=== PATIENT | female | born 1990 | race African-American/Black ===

== ENCOUNTER 2016-08-30 12:29 | Emergency (ER) ==
[2016-08-30 12:35] VITALS: BP 132/74
[2016-08-30] MEDS ORDERED: DUONEB (A & A) INH ONE (13:12)
[2016-08-30] MEDS ORDERED: DECADRON IM ONE (13:12)
--- NOTE | 2016-08-30 13:13 | PROVIDER DOCUMENTATION ---
HPI-General Adult - General Chief Complaint: Flu Symptoms Stated Complaint: FLU LIKE SX Time Seen by Provider: 08/30/16 13:09 Source: patient Allergies/Adverse Reactions: Patient Allergies Allergy/AdvReac Type Severity Reaction Status Date / Time Penicillins Allergy RASH Verified 08/30/16 12:35 - History of Present Illness -Gen Adult Nature of Presenting Problems: 26 y/o AAF c/o cough c hx of asthma, sob, fatigue, and muscle aches x 3 days, with subjective fevers and post-tussive emesis x 1 last night. She used her nebulizer once last night with minimal relief, non toda; no other pre-arrival treatments. denies chest pain. Denies sick contacts. Review of Systems - Adult - REVIEW OF SYSTEMS - ADULT Constitutional: reports: see HPI, chills, fever, fatique. denies: night sweats , weight gain Eyes: reports: no symptoms reported. denies: blurred vision, double vision, eye pain Ears, Nose, Mouth & Throat: reports: no symptoms reported. denies: ear pain, nose pain, throat pain Cardiovascular: reports: no symptoms reported. denies: chest pain, palpitations Respiratory: reports: see HPI, cough, shortness of breath, wheezing Gastrointestinal: reports: see HPI, nausea, vomiting. denies: abdominal pain, diarrhea Genitourinary: reports: no symptoms reported. denies: dysuria, discharge, frequency Musculoskeletal: reports: see HPI, muscle aches. denies: bone pain, back pain, joint pain Integumentary: reports: no symptoms reported. denies: rash Neurological: reports: no symptoms reported. denies: headache/migraines Psychiatric: reports: no symptoms reported Endocrine: reports: no symptoms reported Hematologic/Lymphatic: reports: no symptoms reported Allergic/Immunologic: reports: no symptoms reported All Other Systems: Reviewed and Negative Past History - Adult - PAST MEDICAL HISTORY-ADULT Review of Records: reports: Old Records Reviewed, Nursing Assessment Review, Medications Reviewed, Social history reviewed & non-contributory. Major Childhood Illnesses: reports: denies history Cardiovascular: reports: denies history Respiratory: reports: asthma Gastrointestinal: reports: denies history Obstetrical/Gynecological: reports: denies history Genitourinary: reports: denies history Musculoskeletal: reports: denies history Neurological: reports: denies history Endocrine/Immune: reports: denies history Other Conditions: reports: denies history - PRIOR SURGERIES/PROCEDURES Surgical/Procedure History: reports: reviewed, not pertinent - FAMILY HISTORY Family History: reviewed, not pertinent - SOCIAL HISTORY Smoking: denies Substance Use: none/never Alcohol Use Frequency: never Physical Exam-General - PHYSICAL EXAM-ADULT Initial Vital Signs Reviewed: Yes - CONSTITUTIONAL General Appearance: appears well, alert, no apparent distress - EYES Eyes: PERRL/EOMI, pink conjunctivae - HEAD, EARS, NOSE, MOUTH & THROAT HENMT: normocephalic/atraumatic, moist mucous membranes, normal ENT inspection, TMs normal, pharynx normal. negative: pharyngeal erythema, tonsillar exudate, TM abnormal - NECK Neck: non-tender, full range of motion, supple, normal inspection. negative: lymphadenopathy - RESPIRATORY Respiratory: chest non-tender, no accessory muscle use, wheezing (generalized). negative: no pleuratic chest pain, no respiratory distress, respiratory distress, decreased breath sounds, accessory muscle use, crackles, rales, rhonchi - CARDIOVASCULAR Cardiovascular: normal peripheral pulses, regular rate, rhythm, no edema - LYMPHATIC Lymphatic: no adenopathy - MUSCULOSKELETAL Extremity: normal gait - SKIN Integumentary: normal color, normal turgor, warm/dry - NEUROLOGIC Neurologic: grossly normal, no motor/sensory deficits - PSYCHIATRIC Psych/Mental Status: normal mood/affect, normal thought content, normal thought process, oriented x 3 Progress - PLAN OF CARE/RESULTS Progress/Plan/Lab Results: Vital Signs Temp Pulse Resp BP Pulse Ox 08/30/16 13:49 78 18 98 08/30/16 12:33 99.5 F 113 H 24 132/74 97 Penicillins Allergy (Verified 08/30/16 12:35) RASH Laboratory 08/30/16 08/30/16 13:25 12:34 Urine Test NEGATIVE Influenza A (Rapid) NEGATIVE Influenza B (Rapid) NEGATIVE Orders Category Date Time Status CHEST-2 VIEWS [RAD] Stat Exams 08/30/16 13:12 Taken Flu [INFLUENZA SCREEN PL] Stat Lab 08/30/16 12:34 Completed TEST-URINE [PREG] Stat Lab 08/30/16 13:25 Completed Albuterol 2.5MG/Ipratrop 0.5MG [Duoneb (A & A)] Med 08/30/16 13:12 Discontinued 3 ml INH NOW ONE Dexamethasone [Decadron] Med 08/30/16 13:12 Discontinued 4 mg IM NOW ONE Aerosol Treatments Routine Oth 08/30/16 13:12 Active Aerosol Treatments Stat Oth 08/30/16 13:12 Active - XRAY 1 XRAY: Bilateral XRAY Study: Chest Impression: Normal (NAD) Departure - Departure Time of Disposition Order: 14:30 DIAGNOSIS: Asthma exacerbation Disposition: HOME 01 Certified Medical Emergency: Emergent Condition: Stable Additional Instructions: ED Follow Up Instructions: You have been treated by a care provider in the Emergency Department. These instructions are being provided to you so you can have an understanding of how to care for yourself upon discharge. Upon discharge from the Emergency Department, you are responsible for making arrangements for follow-up care by a physician of your choice. Take all prescribed medications as directed. Return to the Emergency Department immediately for any new or worsening symptoms. You may call the Physician Referral phone number at [phone] to obtain a list of Physicians who are taking new patients. Prescriptions: Prednisone [Deltasone] 20 mg PO DIRECTED #12 tablet Azithromycin [Zithromax Z-Lee] 250 mg PO DIRECTED #1 pkg Attestation - Physician/ Mid-level Attestation Patient care was provided by Mid-level provider (ROOF DESIGNER/PA):: Yes Mid-level provider:: Sue Cohn Mid-level documentation review:: The Mid-level provider documentation, treatment plan and medical decision making was reviewed by the physician who agrees with all treatment and medical decision making by the MLP.
--- NOTE | 2016-08-30 14:46 | Diag Imaging Result Document ---
PROCEDURE NAME: CHEST-2 VIEWS - 08/30/2016 PA AND LATERAL RADIOGRAPH OF THE CHEST: COMPARISON: 12/14/2010. FINDINGS: The lungs are grossly clear. There is no discrete pleural fluid collection or evidence of pneumothorax. The cardiomediastinal silhouette and upper airway are grossly unremarkable. IMPRESSION: No evidence of acute chest pathology.
== END 2016-08-30 14:42 | disposition home or self-care (01) ==
LOC: P.ED 12:29
DX: J45.901 Unspecified asthma with (acute) exacerbation (principal); R05 Cough; R06.02 Shortness of breath; R53.83 Other fatigue; M79.1 Myalgia; R50.9 Fever, unspecified; R11.10 Vomiting, unspecified; R06.2 Wheezing
CPT/HCPCS: 71020; 81025; 87804; 94640; 96372; J1100